=== PATIENT | female | born 1980 | race Hispanic/Latino ===

== ENCOUNTER 2018-09-08 13:52 | Outpatient (CLI) | payer OTHER ==
--- NOTE | 2018-09-08 14:54 | ULT ---
THYROID ULTRASOUND: History: Thyroid nodule. FINDINGS: Real-time imaging of the right and left lobes of the gland were performed. Right lobe measures 1.4 x 1.8 x 5.1 cm. The left lobe 1.3 x 1.5 x 4.5 cm. Within the left lobe is a colloid type cyst measuring 3 x 4 mm. IMPRESSION: Tiny colloid type cyst involving the left lobe of the thyroid. POS: [facility]
== END 2018-09-08 13:53 | disposition home or self-care (01) ==
LOC: BICULT 13:52
PROVIDERS: ATTEND Family Medicine
DX: E04.1 Nontoxic single thyroid nodule (principal)
CPT/HCPCS: 76536